=== PATIENT | female | born 1990 | race African-American/Black ===

== ENCOUNTER 2021-09-26 04:58 | Inpatient (IN) | payer MEDICAID, OTHER ==
[~2021-09-26] VITALS: Ht 172.7 cm; Wt 62.6 kg
[2021-09-26] MEDS ORDERED: MORPHINE SULFATE 4 MG/ML CPJ (NOT FOR IM USE) IV ONE ×2 (05:30→08:00)
[2021-09-26 06:08] LABS: CHLORIDE 104 mEq/L (98-107)
[2021-09-26 06:09] LABS: BASOPHILS % 1.1 % (0.0-2.0); HEMATOCRIT. 29.3 % (36.0-48.0); HEMOGLOBIN. 9.8 g/dL (12.0-16.0); MEAN CORPUSCULAR HEMOGLOBIN 26.2 pg (28.0-32.0); MEAN CORPUSCULAR VOLUME 78.7 fL (81.0-99.0); MEAN PLATELET VOLUME 7.7 fl (7.4-10.4); MONOCYTES % 5.7 % (2.0-8.0); NEUTROPHILS % 65.2 % (40.0-76.0); PLATELET 383 x1000/uL (130-400); RED BLOOD CELL COUNT 3.72 mill/uL (4.2-5.4)
[2021-09-26 06:11] LABS: HCG SCREEN NEGATIVE
[2021-09-26] MEDS ORDERED: HYDROCODONE/ACETAMINOPHEN 5/325MG TABLET PO ONE (08:00)
[2021-09-26] MEDS: ENOXAPARIN 40MG/0.4ML SYR SUBCUT SCH (09:00)
[2021-09-26] MEDS ORDERED: NALOXONE HCL 0.4MG/ML VIAL IV PRN (09:15)
[2021-09-26] MEDS ORDERED: ONDANSETRON HCL 4MG/2ML INJ IV PRN (09:15)
[2021-09-26 10:40] VITALS: BP 122/74
[2021-09-26 12:00] VITALS: BP 125/86
[2021-09-26] MEDS: HYDROCODONE/ACETAMINOPHEN 10/325MG TABLET PO PRN ×2 (12:17→19:11)
[2021-09-26] MEDS: KETOROLAC 30MG/ML VIAL IV PRN ×2 (14:58→21:27)
[2021-09-26 16:00] VITALS: BP 111/63
[2021-09-26 20:00] VITALS: BP 128/77
[2021-09-26 22:00] VITALS: BP 128/77
[2021-09-26 23:25] LABS: *BARBITURATES SCREEN URINE NEGATIVE (NEGATIVE); *BENZODIAZEPINES SCREEN URINE NEGATIVE (NEGATIVE); *COCAINE SCREEN URINE NEGATIVE (NEGATIVE)
[2021-09-26 23:26] LABS: METHADONE URINE SCREEN NEGATIVE (NEGATIVE); PHENCYCLIDINE URINE SCREEN NEGATIVE (NEGATIVE)
[2021-09-26 23:28] LABS: CANNABINOID URINE SCREEN PRESUMTIVE POSITIVE (NEGATIVE); OPIATES URINE SCREEN PRESUMTIVE POSITIVE (NEGATIVE)
[2021-09-26 23:33] LABS: *AMPHETAMINES SCREEN URINE NEGATIVE (NEGATIVE)
[2021-09-27] VITALS: BP 117/54
[2021-09-27] MEDS: HYDROCODONE/ACETAMINOPHEN 10/325MG TABLET PO PRN ×3 (01:19→17:14)
[2021-09-27 04:00] VITALS: BP 105/70
[2021-09-27] MEDS: KETOROLAC 30MG/ML VIAL IV PRN ×3 (04:00→19:02)
[2021-09-27 08:00] VITALS: BP 134/79
[2021-09-27] MEDS ORDERED: ZOLPIDEM TARTRATE 5MG TABLET PO PRN (15:45)
[2021-09-27 20:00] VITALS: BP 120/85
[2021-09-27] MEDS ORDERED: LORAZEPAM 0.5MG TABLET PO NR (21:00)
[2021-09-28] VITALS: BP 120/85
[2021-09-28] MEDS: LORAZEPAM 2MG/ML CPJ IV PRN ×2 (00:36→09:05)
[2021-09-28] MEDS: KETOROLAC 30MG/ML VIAL IV PRN ×4 (01:21→20:33)
[2021-09-28 04:00] VITALS: BP 116/59
[2021-09-28] MEDS ORDERED: CLONAZEPAM 0.5MG TABLET PO PRN ×3 (08:00→13:30)
[2021-09-28] MEDS: ENOXAPARIN 40MG/0.4ML SYR SUBCUT SCH (09:04)
[2021-09-28] MEDS: HYDROCODONE/ACETAMINOPHEN 10/325MG TABLET PO PRN ×2 (09:05→18:08)
[2021-09-28 20:00] VITALS: BP 120/77
[2021-09-28] MEDS: RISPERIDONE 1MG TABLET PO SCH (21:57)
[2021-09-28] MEDS: DIVALPROEX SODIUM 500MG DR TABLET PO SCH (21:57)
[2021-09-28] MEDS: PRAZOSIN HCL 1MG CAPSULE PO SCH (21:59)
[2021-09-29] VITALS: BP 106/55
[2021-09-29] MEDS: HYDROCODONE/ACETAMINOPHEN 10/325MG TABLET PO PRN ×2 (01:54→19:07)
[2021-09-29] MEDS: KETOROLAC 30MG/ML VIAL IV PRN ×4 (03:31→21:37)
[2021-09-29 04:00] VITALS: BP 102/64
[2021-09-29 08:00] VITALS: BP 110/78
[2021-09-29] MEDS: RISPERIDONE 1MG TABLET PO SCH ×2 (09:00→21:00)
[2021-09-29] MEDS: DIVALPROEX SODIUM 500MG DR TABLET PO SCH ×2 (09:12→21:41)
[2021-09-29] MEDS: ENOXAPARIN 40MG/0.4ML SYR SUBCUT SCH (09:13)
[2021-09-29 12:00] VITALS: BP 115/75
[2021-09-29 16:00] VITALS: BP 136/79
[2021-09-29] MEDS ORDERED: LORAZEPAM 1MG TABLET PO PRN (18:45)
[2021-09-29 20:00] VITALS: BP 131/80
[2021-09-29] MEDS: PRAZOSIN HCL 1MG CAPSULE PO SCH (22:18)
[2021-09-29] MEDS ORDERED: MORPHINE SULFATE 2 MG/ML CPJ (NOT FOR IM USE) IV NR (23:30)
[2021-09-30] VITALS: BP 127/79
[2021-09-30] MEDS ORDERED: MORPHINE SULFATE 2 MG/ML CPJ (NOT FOR IM USE) IV NR (01:15)
[2021-09-30 04:00] VITALS: BP 119/75
[2021-09-30] MEDS: KETOROLAC 30MG/ML VIAL IV PRN ×2 (04:14→11:39)
[2021-09-30 08:00] VITALS: BP 107/63
[2021-09-30] MEDS ORDERED: HALOPERIDOL LACTATE 5MG/ML VIAL IM NR (08:15)
[2021-09-30] MEDS: RISPERIDONE 1MG TABLET PO SCH ×2 (09:00→21:00)
[2021-09-30] MEDS: DIVALPROEX SODIUM 500MG DR TABLET PO SCH ×2 (09:00→21:00)
[2021-09-30] MEDS: ENOXAPARIN 40MG/0.4ML SYR SUBCUT SCH (09:27)
[2021-09-30] MEDS ORDERED: OLANZAPINE 10 MG/VIAL IM NR (10:15)
[2021-09-30 12:00] VITALS: BP 127/81
[2021-09-30] MEDS ORDERED: HALOPERIDOL LACTATE 5MG/ML VIAL IM PRN ×2 (12:15→12:30)
[2021-09-30] MEDS ORDERED: LORAZEPAM 2MG/ML CPJ IM PRN (12:30)
[2021-09-30] MEDS: LORAZEPAM 2MG/ML CPJ IM PRN (15:57)
[2021-09-30] MEDS ORDERED: IBUP-2029 MT (18:22)
[2021-09-30] MEDS ORDERED: DIVA-18 PO (18:22)
[2021-09-30 20:00] VITALS: BP 115/66
[2021-09-30] MEDS: PRAZOSIN HCL 1MG CAPSULE PO SCH (21:00)
[2021-10-01] MEDS: LORAZEPAM 2MG/ML CPJ IM PRN (00:09)
[2021-10-01 04:00] VITALS: BP 111/61
[2021-10-01] MEDS: KETOROLAC 30MG/ML VIAL IV PRN ×2 (06:54→13:01)
[2021-10-01 08:00] VITALS: BP 122/72
[2021-10-01] MEDS: DIVALPROEX SODIUM 500MG DR TABLET PO SCH (09:00)
[2021-10-01] MEDS: RISPERIDONE 1MG TABLET PO SCH (09:00)
[2021-10-01] MEDS: ENOXAPARIN 40MG/0.4ML SYR SUBCUT SCH (09:17)
[2021-10-01] MEDS ORDERED: VALPROATE SODIUM 250MG/5ML UDC PO NR (11:45)
[2021-10-01 12:00] VITALS: BP 123/75
[2021-10-01 14:59] VITALS: BP 123/75
[2021-10-01 16:06] VITALS: BP 121/78
[2021-10-01] MEDS ORDERED: OLANZAPINE 5MG TABLET ODT PO SCH (17:00)
[2021-10-01] MEDS ORDERED: VALPROATE SODIUM 250MG/5ML UDC PO SCH (17:00)
== END 2021-10-01 16:23 | disposition home or self-care (01) | DRG 341 ==
LOC: ER 04:58 → 6EST 06:23 → EDBEDREQTM 07:30 → ENRESERV 08:49 → 6EST 09-29 16:47
PROVIDERS: ADMIT Internal Medicine; ATTEND Internal Medicine
DX: S32.592A Other specified fracture of left pubis, initial encounter for closed fracture (principal); E44.0 Moderate protein-calorie malnutrition; D64.9 Anemia, unspecified; F41.1 Generalized anxiety disorder; F43.10 Post-traumatic stress disorder, unspecified; W18.39XA Other fall on same level, initial encounter; Z20.822 Contact with and (suspected) exposure to COVID-19; F60.3 Borderline personality disorder; F42.9 Obsessive-compulsive disorder, unspecified; Z88.8 Allergy status to other drugs, medicaments and biological substances; Z68.21 Body mass index [BMI] 21.0-21.9, adult; Y93.89 Activity, other specified; Y92.89 Other specified places as the place of occurrence of the external cause; Y99.8 Other external cause status
CPT/HCPCS: 36415; 71045; 73100; 73502; 73551; 73560; 80053; 80305; 84703; 85025; 87426; 97116; 97162; 97760; 99285; C1893; J1630; J1650; J1885; J2060; J2270; J2405; J3490; J7040